=== PATIENT | male | born 1940 | race Caucasian/White ===

== ENCOUNTER 2022-12-13 10:34 | Observation (INO) | payer BC ==
[2022-12-13] MEDS ORDERED: Sodium Chloride 0.9% 10 ML Syringe FLUSH PRN (10:48)
[2022-12-13 11:10] LABS: BASOPHILS ABSOLUTE AUTO 0.02 10^3/uL (0.00-0.10); BASOPHILS PERCENT AUTO 0.1 % (0.0-1.0); HEMATOCRIT 37.3 % (40.0-52.0); HEMOGLOBIN 12.6 g/dL (13.0-17.0); IMMATURE GRAN ABSOLUTE AUTO 0.03 10^3/uL (0.00-0.50); IMMATURE GRAN PERCENT AUTO 0.2 % (0.0-5.0); LYMPHOCYTES ABSOLUTE AUTO 1.08 10^3/uL (1.00-4.00); LYMPHOCYTES PERCENT AUTO 7.9 % (20.0-40.0); MEAN CORPUSCULAR HEMOGLOBIN 30.3 pg (27.0-31.0); MEAN CORPUSCULAR HGB CONC 33.8 g/dL (32.0-36.0); MEAN CORPUSCULAR VOLUME 89.7 fL (82.0-92.0); MEAN PLATELET VOLUME 9.5 fL (7.4-10.4); NEUTROPHILS ABSOLUTE AUTO 10.99 10^3/uL (2.50-7.00); NEUTROPHILS PERCENT AUTO 80.8 % (50.0-70.0); PLATELET COUNT,PLT 188 10^3/uL (150-400); RED BLOOD CELL COUNT 4.16 10^6/uL (4.50-6.00); RED CELL DISTRIBUTION WIDTH 12.7 % (11.5-14.5); WHITE BLOOD CELL COUNT,WBC 13.62 10^3/uL (5.00-10.00)
[2022-12-13 11:26] LABS: ALBUMIN 3.34 g/dL (3.40-5.00); ANION GAP 11.6 mmol/L (5-15); BILIRUBIN TOTAL 0.9 mg/dL (0.2-1.0); CALCIUM 8.9 mg/dL (8.7-10.3); CREATININE 0.82 mg/dL (0.51-1.17); EST CRCL DRUG DOSING (CG) 76.23 mL/min; POTASSIUM,K 3.6 mmol/L (3.5-5.1); PROTEIN TOTAL,TP 6.7 g/dL (6.4-8.2)
[2022-12-13 11:30] LABS: LACTIC ACID 1.1 mmol/L (0.4-2.0)
[2022-12-13 11:47] LABS: INFLUENZA A NAA NEGATIVE (NEGATIVE); INFLUENZA B NAA NEGATIVE (NEGATIVE)
[2022-12-13 11:49] LABS: CORONAVIRUS COVID-19 NAA NEGATIVE (NEGATIVE)
[2022-12-13 12:05] LABS: APPEARANCE,URINE CLEAR (CLEAR); BILIRUBIN,URINE SMALL (NEGATIVE); COLOR,URINE DARK YELLOW (YELLOW); GLUCOSE,URINE NEGATIVE (NEGATIVE); KETONES,URINE 40 mg/dL (NEGATIVE); LEUKOCYTE ESTERASE,URINE NEGATIVE (NEGATIVE); NITRITE,URINE NEGATIVE (NEGATIVE); OCCULT BLOOD,URINE NEGATIVE (NEGATIVE); PROTEIN,URINE 100 mg/dL (NEGATIVE)
[2022-12-13 12:07] LABS: BACTERIA,URINE RARE /HPF (NONE TO FEW); EPITHELIAL CELLS,URINE FEW /LPF; MUCUS,URINE RARE /LPF (NEGATIVE); RBC,URINE 0-5 /HPF (0-5); WBC,URINE 0-5 /HPF (0-5)
[2022-12-13] MEDS ORDERED: Ondansetron 4 MG/2 ML SDV IV PRN (15:15)
[2022-12-13] MEDS ORDERED: Acetaminophen 325 MG Tab PO PRN (15:15)
[2022-12-13] MEDS: Sodium Chloride 0.9% 1,000 ML IV SCH (15:41)
[2022-12-13] MEDS ORDERED: OLOPATADINE HCL EYEBOTH PRN (17:16)
[2022-12-13] MEDS: Carbidopa/Levodopa 25-100 MG Tab PO SCH (17:55)
[2022-12-13] MEDS: Haloperidol 0.5 MG Tab PO PRN (21:40)
[2022-12-13] MEDS: Docusate Sodium 100 MG Cap PO SCH (21:40)
[2022-12-13] MEDS: Donepezil 10 MG Tab PO SCH (21:40)
[2022-12-13] MEDS: Aspirin 81 MG Tab.EC PO SCH (21:40)
[2022-12-14] MEDS: Sodium Chloride 0.9% 1,000 ML IV SCH ×2 (02:04→12:16)
[2022-12-14 07:22] LABS: BASOPHILS ABSOLUTE AUTO 0.02 10^3/uL (0.00-0.10); BASOPHILS PERCENT AUTO 0.2 % (0.0-1.0); EOSINOPHILS ABSOLUTE AUTO 0.23 10^3/uL (0.10-0.30); EOSINOPHILS PERCENT AUTO 2.7 % (1.0-3.0); HEMATOCRIT 36.6 % (40.0-52.0); HEMOGLOBIN 12.1 g/dL (13.0-17.0); IMMATURE GRAN ABSOLUTE AUTO 0.03 10^3/uL (0.00-0.50); IMMATURE GRAN PERCENT AUTO 0.4 % (0.0-5.0); LYMPHOCYTES ABSOLUTE AUTO 1.01 10^3/uL (1.00-4.00); LYMPHOCYTES PERCENT AUTO 11.8 % (20.0-40.0); MEAN CORPUSCULAR HEMOGLOBIN 30.4 pg (27.0-31.0); MEAN CORPUSCULAR HGB CONC 33.1 g/dL (32.0-36.0); MEAN PLATELET VOLUME 9.4 fL (7.4-10.4); MONOCYTES ABSOLUTE AUTO 1.24 10^3/uL (0.10-0.80); MONOCYTES PERCENT AUTO 14.5 % (2.0-8.0); NEUTROPHILS ABSOLUTE AUTO 6.02 10^3/uL (2.50-7.00); NEUTROPHILS PERCENT AUTO 70.4 % (50.0-70.0); PLATELET COUNT,PLT 166 10^3/uL (150-400); RED BLOOD CELL COUNT 3.98 10^6/uL (4.50-6.00); RED CELL DISTRIBUTION WIDTH 12.9 % (11.5-14.5); WHITE BLOOD CELL COUNT,WBC 8.55 10^3/uL (5.00-10.00)
[2022-12-14 07:41] LABS: ALBUMIN 2.81 g/dL (3.40-5.00); ANION GAP 10.8 mmol/L (5-15); BILIRUBIN TOTAL 0.7 mg/dL (0.2-1.0); CALCIUM 8.6 mg/dL (8.7-10.3); CARBON DIOXIDE,CO2 28.4 mmol/L (21.0-32.0); CREATININE 0.71 mg/dL (0.51-1.17); EST CRCL DRUG DOSING (CG) 89.35 mL/min; POTASSIUM,K 3.2 mmol/L (3.5-5.1); PROTEIN TOTAL,TP 6.1 g/dL (6.4-8.2)
[2022-12-14] MEDS: Carbidopa/Levodopa 25-100 MG Tab PO SCH ×3 (08:33→16:33)
[2022-12-14] MEDS: Losartan Potassium 100 MG Tablet PO SCH (08:34)
[2022-12-14] MEDS: AMLODIPINE 10 MG PO SCH (08:34)
[2022-12-14] MEDS: Citalopram 20 MG Tab PO SCH (08:35)
[2022-12-14] MEDS: Tamsulosin 0.4 MG Cap.ER PO SCH (08:35)
[2022-12-14] MEDS: Metoprolol Succinate 25 MG Tab.ER PO SCH (08:35)
[2022-12-14] MEDS: Enoxaparin 40 MG/0.4 ML Syringe SUBCUT SCH (08:36)
[2022-12-14] MEDS ORDERED: Potassium Chloride 20 MEQ Tab.ER PO ONE (14:15)
[2022-12-14] MEDS: Haloperidol 0.5 MG Tab PO PRN (19:37)
[2022-12-14] MEDS: Aspirin 81 MG Tab.EC PO SCH (20:09)
[2022-12-14] MEDS: Donepezil 10 MG Tab PO SCH (20:09)
[2022-12-14] MEDS: Docusate Sodium 100 MG Cap PO SCH (20:09)
[2022-12-15] MEDS: Tamsulosin 0.4 MG Cap.ER PO SCH (08:13)
[2022-12-15] MEDS: Citalopram 20 MG Tab PO SCH (08:13)
[2022-12-15] MEDS: Losartan Potassium 100 MG Tablet PO SCH (08:14)
[2022-12-15] MEDS: AMLODIPINE 10 MG PO SCH (08:14)
[2022-12-15] MEDS: Carbidopa/Levodopa 25-100 MG Tab PO SCH (08:14)
[2022-12-15] MEDS: Enoxaparin 40 MG/0.4 ML Syringe SUBCUT SCH (08:15)
[2022-12-15] MEDS: Metoprolol Succinate 25 MG Tab.ER PO SCH (08:17)
== END 2022-12-15 11:04 | disposition swing bed (61) ==
LOC: KA.ED 10:34 → KA.MS 13:12
PROVIDERS: ADMIT Internal Medicine; ATTEND Internal Medicine
DX: G93.41 Metabolic encephalopathy (principal); R53.1 Weakness; R09.02 Hypoxemia; E78.00 Pure hypercholesterolemia, unspecified; I10 Essential (primary) hypertension; N40.0 Benign prostatic hyperplasia without lower urinary tract symptoms; G20 Parkinson's disease; F32.A Depression, unspecified; F02.80 Dementia in other diseases classified elsewhere, unspecified severity, without behavioral disturbance, psychotic disturbance, mood disturbance, and anxiety; Z20.822 Contact with and (suspected) exposure to COVID-19; Z91.048 Other nonmedicinal substance allergy status; Z79.82 Long term (current) use of aspirin; Z79.899 Other long term (current) drug therapy; Z87.891 Personal history of nicotine dependence
CPT/HCPCS: 0240U; 36415; 51701; 70450; 71045; 80053; 81001; 83605; 83880; 85025; 93010; 97129; 97130; 97161; 97535; 99284; 99285; A9270; C1758; J1650; J7030; Q3014; 96372; G0378

== ENCOUNTER 2022-12-15 09:34 | Inpatient (IN) | payer MEDICARE, BC ==
[2022-12-15] MEDS ORDERED: PATADAY EYEBOTH PRN (10:33)
[2022-12-15] MEDS ORDERED: Ondansetron 4 MG/2 ML SDV IV PRN (10:33)
[2022-12-15] MEDS: Carbidopa/Levodopa 25-100 MG Tab PO SCH ×2 (13:27→17:57)
[2022-12-15] MEDS: Docusate Sodium 100 MG Cap PO SCH ×2 (19:36→21:34)
[2022-12-15] MEDS: Donepezil 10 MG Tab PO SCH ×2 (19:37→21:34)
[2022-12-15] MEDS: Haloperidol 0.5 MG Tab PO PRN (19:37)
[2022-12-15] MEDS: Aspirin 81 MG Tab.EC PO SCH ×2 (19:37→21:34)
[2022-12-15] MEDS: Acetaminophen 325 MG Tab PO PRN (21:36)
[2022-12-15] MEDS: Melatonin 3 MG Tab PO PRN (21:36)
[2022-12-16] MEDS: Citalopram 20 MG Tab PO SCH (09:25)
[2022-12-16] MEDS: Enoxaparin 40 MG/0.4 ML Syringe SUBCUT SCH (09:25)
[2022-12-16] MEDS: Losartan 50 MG Tab PO SCH (09:26)
[2022-12-16] MEDS: Carbidopa/Levodopa 25-100 MG Tab PO SCH ×3 (09:27→17:04)
[2022-12-16] MEDS: Tamsulosin 0.4 MG Cap.ER PO SCH (09:27)
[2022-12-16] MEDS: amLODIPine 5 MG Tab PO SCH (09:27)
[2022-12-16] MEDS: Metoprolol Succinate 25 MG Tab.ER PO SCH (09:27)
[2022-12-16] MEDS: Acetaminophen 325 MG Tab PO PRN (20:31)
[2022-12-16] MEDS: Aspirin 81 MG Tab.EC PO SCH (20:32)
[2022-12-16] MEDS: Docusate Sodium 100 MG Cap PO SCH (20:32)
[2022-12-16] MEDS: Donepezil 10 MG Tab PO SCH (20:32)
[2022-12-16] MEDS: Melatonin 3 MG Tab PO PRN (20:33)
[2022-12-16] MEDS: Haloperidol 0.5 MG Tab PO PRN (20:33)
[2022-12-17] MEDS: amLODIPine 5 MG Tab PO SCH (09:49)
[2022-12-17] MEDS: Metoprolol Succinate 25 MG Tab.ER PO SCH (09:50)
[2022-12-17] MEDS: Carbidopa/Levodopa 25-100 MG Tab PO SCH ×3 (09:50→16:54)
[2022-12-17] MEDS: Losartan 50 MG Tab PO SCH (09:51)
[2022-12-17] MEDS: Tamsulosin 0.4 MG Cap.ER PO SCH (09:51)
[2022-12-17] MEDS: Citalopram 20 MG Tab PO SCH (09:51)
[2022-12-17] MEDS: Enoxaparin 40 MG/0.4 ML Syringe SUBCUT SCH (09:52)
[2022-12-17] MEDS: Docusate Sodium 100 MG Cap PO SCH (20:22)
[2022-12-17] MEDS: Acetaminophen 325 MG Tab PO PRN (20:22)
[2022-12-17] MEDS: Donepezil 10 MG Tab PO SCH (20:22)
[2022-12-17] MEDS: Aspirin 81 MG Tab.EC PO SCH (20:22)
[2022-12-17] MEDS: Melatonin 3 MG Tab PO PRN (20:22)
[2022-12-17] MEDS: Haloperidol 0.5 MG Tab PO PRN (20:27)
[2022-12-18] MEDS: Citalopram 20 MG Tab PO SCH (09:29)
[2022-12-18] MEDS: Carbidopa/Levodopa 25-100 MG Tab PO SCH ×3 (09:30→17:00)
[2022-12-18] MEDS: Tamsulosin 0.4 MG Cap.ER PO SCH (09:30)
[2022-12-18] MEDS: Metoprolol Succinate 25 MG Tab.ER PO SCH (09:31)
[2022-12-18] MEDS: amLODIPine 5 MG Tab PO SCH (09:31)
[2022-12-18] MEDS: Losartan 50 MG Tab PO SCH (09:32)
[2022-12-18] MEDS: Enoxaparin 40 MG/0.4 ML Syringe SUBCUT SCH (09:32)
[2022-12-18] MEDS: Docusate Sodium 100 MG Cap PO SCH (20:34)
[2022-12-18] MEDS: Acetaminophen 325 MG Tab PO PRN (20:34)
[2022-12-18] MEDS: Haloperidol 0.5 MG Tab PO PRN (20:35)
[2022-12-18] MEDS: Aspirin 81 MG Tab.EC PO SCH (20:35)
[2022-12-18] MEDS: Melatonin 3 MG Tab PO PRN (20:35)
[2022-12-18] MEDS: Donepezil 10 MG Tab PO SCH (20:35)
[2022-12-19] MEDS: Carbidopa/Levodopa 25-100 MG Tab PO SCH ×3 (09:16→18:07)
[2022-12-19] MEDS: Metoprolol Succinate 25 MG Tab.ER PO SCH (09:16)
[2022-12-19] MEDS: Tamsulosin 0.4 MG Cap.ER PO SCH (09:16)
[2022-12-19] MEDS: Losartan 50 MG Tab PO SCH (09:16)
[2022-12-19] MEDS: amLODIPine 5 MG Tab PO SCH (09:17)
[2022-12-19] MEDS: Citalopram 20 MG Tab PO SCH (09:17)
[2022-12-19] MEDS: Enoxaparin 40 MG/0.4 ML Syringe SUBCUT SCH (09:18)
[2022-12-19] MEDS: Docusate Sodium 100 MG Cap PO SCH (20:11)
[2022-12-19] MEDS: Aspirin 81 MG Tab.EC PO SCH (20:12)
[2022-12-19] MEDS: Donepezil 10 MG Tab PO SCH (20:12)
[2022-12-19] MEDS: Haloperidol 0.5 MG Tab PO PRN (20:12)
[2022-12-19] MEDS: Acetaminophen 325 MG Tab PO PRN (20:12)
[2022-12-19] MEDS: Melatonin 3 MG Tab PO PRN (20:19)
[2022-12-20] MEDS: Carbidopa/Levodopa 25-100 MG Tab PO SCH ×3 (09:56→17:53)
[2022-12-20] MEDS: Tamsulosin 0.4 MG Cap.ER PO SCH (09:56)
[2022-12-20] MEDS: Losartan 50 MG Tab PO SCH (09:56)
[2022-12-20] MEDS: Citalopram 20 MG Tab PO SCH (09:56)
[2022-12-20] MEDS: Enoxaparin 40 MG/0.4 ML Syringe SUBCUT SCH (09:57)
[2022-12-20] MEDS: amLODIPine 5 MG Tab PO SCH (09:57)
[2022-12-20] MEDS: Metoprolol Succinate 25 MG Tab.ER PO SCH (09:57)
[2022-12-20] MEDS: Aspirin 81 MG Tab.EC PO SCH (20:09)
[2022-12-20] MEDS: Haloperidol 0.5 MG Tab PO PRN (20:09)
[2022-12-20] MEDS: Docusate Sodium 100 MG Cap PO SCH (20:09)
[2022-12-20] MEDS: Donepezil 10 MG Tab PO SCH (20:09)
[2022-12-20] MEDS: Melatonin 3 MG Tab PO PRN (20:09)
[2022-12-21] MEDS: Carbidopa/Levodopa 25-100 MG Tab PO SCH ×3 (08:19→17:01)
[2022-12-21] MEDS: Tamsulosin 0.4 MG Cap.ER PO SCH (08:19)
[2022-12-21] MEDS: amLODIPine 5 MG Tab PO SCH (08:19)
[2022-12-21] MEDS: Enoxaparin 40 MG/0.4 ML Syringe SUBCUT SCH (08:19)
[2022-12-21] MEDS: Losartan 50 MG Tab PO SCH (08:20)
[2022-12-21] MEDS: Metoprolol Succinate 25 MG Tab.ER PO SCH (08:20)
[2022-12-21] MEDS: Citalopram 20 MG Tab PO SCH (08:21)
[2022-12-21] MEDS: Docusate Sodium 100 MG Cap PO SCH (20:43)
[2022-12-21] MEDS: Melatonin 3 MG Tab PO PRN (20:43)
[2022-12-21] MEDS: Haloperidol 0.5 MG Tab PO PRN (20:43)
[2022-12-21] MEDS: Aspirin 81 MG Tab.EC PO SCH (20:44)
[2022-12-21] MEDS: Donepezil 10 MG Tab PO SCH (20:44)
[2022-12-22] MEDS: Enoxaparin 40 MG/0.4 ML Syringe SUBCUT SCH (09:00)
[2022-12-22] MEDS: Tamsulosin 0.4 MG Cap.ER PO SCH (09:00)
[2022-12-22] MEDS: Citalopram 20 MG Tab PO SCH (09:00)
[2022-12-22] MEDS: Carbidopa/Levodopa 25-100 MG Tab PO SCH ×3 (09:00→17:07)
[2022-12-22] MEDS: Losartan 50 MG Tab PO SCH (09:03)
[2022-12-22] MEDS: amLODIPine 5 MG Tab PO SCH (09:03)
[2022-12-22] MEDS: Metoprolol Succinate 25 MG Tab.ER PO SCH (09:04)
[2022-12-22] MEDS: Docusate Sodium 100 MG Cap PO SCH (20:29)
[2022-12-22] MEDS: Aspirin 81 MG Tab.EC PO SCH (20:29)
[2022-12-22] MEDS: Haloperidol 0.5 MG Tab PO PRN (20:30)
[2022-12-22] MEDS: Donepezil 10 MG Tab PO SCH (20:31)
[2022-12-22] MEDS: Melatonin 3 MG Tab PO PRN (20:32)
[2022-12-23] MEDS: Enoxaparin 40 MG/0.4 ML Syringe SUBCUT SCH (08:15)
[2022-12-23] MEDS: Carbidopa/Levodopa 25-100 MG Tab PO SCH ×3 (08:15→17:09)
[2022-12-23] MEDS: amLODIPine 5 MG Tab PO SCH (08:19)
[2022-12-23] MEDS: Citalopram 20 MG Tab PO SCH (08:19)
[2022-12-23] MEDS: Losartan 50 MG Tab PO SCH (08:19)
[2022-12-23] MEDS: Tamsulosin 0.4 MG Cap.ER PO SCH (08:19)
[2022-12-23] MEDS: Metoprolol Succinate 25 MG Tab.ER PO SCH (08:20)
[2022-12-23] MEDS: Donepezil 10 MG Tab PO SCH (20:06)
[2022-12-23] MEDS: Docusate Sodium 100 MG Cap PO SCH (20:06)
[2022-12-23] MEDS: Haloperidol 0.5 MG Tab PO PRN (20:07)
[2022-12-23] MEDS: Acetaminophen 325 MG Tab PO PRN (20:09)
[2022-12-23] MEDS: Aspirin 81 MG Tab.EC PO SCH (20:11)
[2022-12-23] MEDS: Melatonin 3 MG Tab PO PRN (20:11)
[2022-12-24] MEDS: Citalopram 20 MG Tab PO SCH (09:27)
[2022-12-24] MEDS: Carbidopa/Levodopa 25-100 MG Tab PO SCH ×3 (09:27→16:44)
[2022-12-24] MEDS: Tamsulosin 0.4 MG Cap.ER PO SCH (09:27)
[2022-12-24] MEDS: Enoxaparin 40 MG/0.4 ML Syringe SUBCUT SCH (09:28)
[2022-12-24] MEDS: amLODIPine 5 MG Tab PO SCH (09:55)
[2022-12-24] MEDS: Losartan 50 MG Tab PO SCH (09:56)
[2022-12-24] MEDS: Metoprolol Succinate 25 MG Tab.ER PO SCH (09:56)
[2022-12-24] MEDS: Donepezil 10 MG Tab PO SCH (20:22)
[2022-12-24] MEDS: Aspirin 81 MG Tab.EC PO SCH (20:22)
[2022-12-24] MEDS: Melatonin 3 MG Tab PO PRN (20:22)
[2022-12-24] MEDS: Haloperidol 0.5 MG Tab PO PRN (20:23)
[2022-12-24] MEDS: Docusate Sodium 100 MG Cap PO SCH (20:23)
[2022-12-25] MEDS: Tamsulosin 0.4 MG Cap.ER PO SCH (09:17)
[2022-12-25] MEDS: Enoxaparin 40 MG/0.4 ML Syringe SUBCUT SCH (09:17)
[2022-12-25] MEDS: Losartan 50 MG Tab PO SCH (09:18)
[2022-12-25] MEDS: amLODIPine 5 MG Tab PO SCH (09:18)
[2022-12-25] MEDS: Metoprolol Succinate 25 MG Tab.ER PO SCH (09:18)
[2022-12-25] MEDS: Carbidopa/Levodopa 25-100 MG Tab PO SCH (09:18)
[2022-12-25] MEDS: Citalopram 20 MG Tab PO SCH (09:18)
== END 2022-12-25 11:10 | DRG 948 ==
LOC: KA.MS 11:04
PROVIDERS: ADMIT Internal Medicine; ATTEND Internal Medicine
DX: R53.1 Weakness (principal); G20 Parkinson's disease; I10 Essential (primary) hypertension; R53.81 Other malaise; F03.90 Unspecified dementia, unspecified severity, without behavioral disturbance, psychotic disturbance, mood disturbance, and anxiety; R40.0 Somnolence; R29.6 Repeated falls; Z79.82 Long term (current) use of aspirin; Z79.899 Other long term (current) drug therapy
CPT/HCPCS: 97110-GP; 97535-GO; A9270-GY; J1650; Q3014

== ENCOUNTER 2023-02-20 10:04 | Day surgery (SDC) | payer BC ==
[2023-02-20] MEDS ORDERED: Sodium Chloride 0.9% 10 ML Syringe FLUSH PRN (10:30)
[2023-02-20] MEDS: Lactated Ringers 1,000 ML IV SCH (10:41)
[2023-02-20] MEDS ORDERED: Midazolam 1 MG/ML 2 ML SDV ONE (10:56)
[2023-02-20] MEDS ORDERED: Propofol 200 MG/20 ML SDV ONE (10:57)
[2023-02-20] MEDS ORDERED: Lactated Ringers 1,000 ML ONE (13:21)
[2023-02-20 15:58] VITALS: BP 135/71; PULSE 54
== END 2023-02-20 15:30 | disposition home or self-care (01) ==
LOC: KA.SDS 10:04
PROVIDERS: ATTEND Family Medicine
DX: K57.30 Diverticulosis of large intestine without perforation or abscess without bleeding (principal); K64.8 Other hemorrhoids; K63.89 Other specified diseases of intestine; I70.0 Atherosclerosis of aorta; R73.9 Hyperglycemia, unspecified; N40.0 Benign prostatic hyperplasia without lower urinary tract symptoms; I10 Essential (primary) hypertension; E78.5 Hyperlipidemia, unspecified; Z87.891 Personal history of nicotine dependence; Z79.899 Other long term (current) drug therapy; Z79.82 Long term (current) use of aspirin
CPT/HCPCS: 00811; J2250; J2704; J7120

== ENCOUNTER 2023-11-10 21:23 | Emergency (ER) | payer BC, MEDICARE ==
[2023-11-10 21:53] LABS: BASOPHILS ABSOLUTE AUTO 0.04 10^3/uL (0.00-0.10); BASOPHILS PERCENT AUTO 0.4 % (0.0-1.0); EOSINOPHILS ABSOLUTE AUTO 0.57 10^3/uL (0.10-0.30); EOSINOPHILS PERCENT AUTO 5.1 % (1.0-3.0); HEMATOCRIT 37.7 % (40.0-52.0); IMMATURE GRAN ABSOLUTE AUTO 0.02 10^3/uL (0.00-0.50); IMMATURE GRAN PERCENT AUTO 0.2 % (0.0-5.0); LYMPHOCYTES ABSOLUTE AUTO 2.03 10^3/uL (1.00-4.00); MEAN CORPUSCULAR HEMOGLOBIN 31.5 pg (27.0-31.0); MEAN CORPUSCULAR HGB CONC 34.5 g/dL (32.0-36.0); MEAN CORPUSCULAR VOLUME 91.3 fL (82.0-92.0); MEAN PLATELET VOLUME 9.1 fL (7.4-10.4); MONOCYTES ABSOLUTE AUTO 1.19 10^3/uL (0.10-0.80); MONOCYTES PERCENT AUTO 10.6 % (2.0-8.0); NEUTROPHILS PERCENT AUTO 65.7 % (50.0-70.0); PLATELET COUNT,PLT 223 10^3/uL (150-400); RED BLOOD CELL COUNT 4.13 10^6/uL (4.50-6.00); RED CELL DISTRIBUTION WIDTH 13.1 % (11.5-14.5); WHITE BLOOD CELL COUNT,WBC 11.25 10^3/uL (5.00-10.00)
[2023-11-10 22:11] LABS: ALBUMIN 3.03 g/dL (3.40-5.00); ANION GAP 11.7 mmol/L (5-15); BILIRUBIN TOTAL 0.4 mg/dL (0.2-1.0); CALCIUM 9.2 mg/dL (8.7-10.3); CARBON DIOXIDE,CO2 27.9 mmol/L (21.0-32.0); CREATININE 0.65 mg/dL (0.51-1.17); EST CRCL DRUG DOSING (CG) 97.31 mL/min; POTASSIUM,K 3.6 mmol/L (3.5-5.1); PROTEIN TOTAL,TP 6.8 g/dL (6.4-8.2)
[2023-11-10] MEDS: Doxycycline Monohydrate 100 MG Cap PO ONE (22:27)
== END 2023-11-10 23:00 ==
LOC: KA.ED 21:23
DX: J69.0 Pneumonitis due to inhalation of food and vomit (principal); I10 Essential (primary) hypertension; E78.00 Pure hypercholesterolemia, unspecified; Z91.048 Other nonmedicinal substance allergy status; Z79.82 Long term (current) use of aspirin; Z79.899 Other long term (current) drug therapy
CPT/HCPCS: 36415; 71046; 80053; 85025; 99284; 99285; A9270-GY